=== PATIENT | female | born 2000 ===

== ENCOUNTER 2024-01-16 17:38 | Emergency (ER) | payer OTHER, SELFPAY ==
[2024-01-16 17:40] VITALS: BP 130/79
[2024-01-16 18:13] LABS: % Basophils 0.4 % (0-2); % Eosinophils 1.3 % (0-6); % Immature Granulocytes 0.1 % (0-0.5); % Lymphocytes 28.4 % (20.5-51.1); % Monocytes 8.5 % (1.7-9.3); % Neutrophils 61.3 % (42.2-75.2); Absolute Eosinophils 0.1 10^3/uL (0-0.7); Absolute Monocytes 0.6 10^3/uL (0.1-0.6); Absolute Neutrophils 4.4 10^3/uL (1.4-6.5); Hemoglobin 13.3 g/dL (12.0-16.0); Mean Corp Hgb Conc. 33.3 g/dL (33.0-37.0); Mean Corpuscular Hgb 30.6 pg (27.0-31.0); Mean Platelet Volume 10.9 fL (7.4-10.4); Nucleated Red Blood Cells % 0 %; Platelet Count 212 10^3/uL (130-400); Red Blood Cell Count 4.35 10^6/uL (4.20-5.40); Red Cell Dist. Width 11.9 % (11.5-14.5); White Blood Cell Count 7.2 10^3/uL (4.8-10.8)
[2024-01-16 18:29] LABS: ALT (SGPT) 19 U/L (0-35); AST (SGOT) 22 U/L (14-36); Alkaline Phosphatase 61 U/L (38-126); Blood Urea Nitrogen 17 mg/dl (7-17); Calcium 9.8 mg/dl (8.4-10.2); Carbon Dioxide 21 mmol/L (22-30); Chloride 104 mmol/L (98-107); Glucose 100 mg/dl (70-99); Sodium 141 mmol/L (135-145); Total Bilirubin 0.5 mg/dl (0.2-1.3); Total Protein 7.8 g/dl (6.3-8.2); eGFR > 60.00
[2024-01-16 19:05] VITALS: BP 132/80
--- NOTE | 2024-01-16 21:03 | ED.GENMED ---
History of Present Illness
General
Chief Complaint: Problems
Source: patient
Exam Limitations: none
Time Seen by Provider: 01/16/24 18:37
Nursing documentation reviewed up to this point in time: agreed with
History of Present Illness
History of Present Illness:
Patient to ED with report of vaginal spotting. Symptoms started today. She reports she is approx 8 weeks . . SHe has her first OB appointment on . She denies any abdominal/pelvic pain/cramping. To ED accompanied by family for
eval.
Past History
Past History
ED Past Medical History: None
ED Past Surgical History: None
Social History
Tobacco: Non-smoker
Alcohol: None
Phy Exam
General Physical Exam
General Presentation: well appearing and no apparent distress
General age: appears stated age
General Skin: warm and dry
General Habitus: normal
General Mental: alert
Pulmonary Exam
Pulmonary Exam: no respiratory distress
Gastrointestinal Exam
Gastrointestinal Exam: normal bowel sounds, non tender, soft, no organomegaly and non distended
Genitourinary Exam Female
Exam Female: other (Deferred for transvag US)
Musculoskeletal Exam
Musculoskeletal Exam: full ROM and neuro vasc intact
Skin Exam
Skin Exam: normal color, warm/dry and no rash
Psychiatric Exam
Psychiatric Exam: normal mood/affect
Course
Orders/Labs/Results
Orders:
Orders
01/16/24 17:53
Complete Blood Count/With Diff Urgent
Comprehensive Metabolic Panel Urgent
HCG, Beta Quantitative [Beta HCG Quantitative] Urgent
Is this a screen?: No
01/16/24 18:40
1st Trimester US [US 1st Trimester] Urgent
Comment:
Reason For Exam: bleeding
01/16/24 19:03
ABO [Blood Group&Type] Urgent
01/16/24 19:31
ABO2 Routine
BBK Wristband Number:
Associate notified that ABO2 has been ordered: [id number]
Date: 01/16/24
Time: 19:15
Legal Records Clerk ID: [id number]
Abnormal Lab Results
01/16/24
17:53
MPV 10.9 H fL
(7.4-10.4)
Carbon Dioxide 21 L mmol/L
(22-30)
Glucose 100 H mg/dl
(70-99)
01/16/24 17:53
01/16/24 17:53
Vital Signs
Initial and Last Documented VS:
Initial Vital Signs
Temp Pulse Resp BP Pulse Ox
98.8 F 89 18 130/79 100
01/16/24 17:40 01/16/24 17:40 01/16/24 17:40 01/16/24 17:40 01/16/24 17:40
Last Documented Vital Signs
Temp Pulse Resp BP Pulse Ox
98.8 F 89 18 130/79 100
01/16/24 17:40 01/16/24 17:40 01/16/24 17:40 01/16/24 17:40 01/16/24 17:40
Information
Weeks gestation: Weeks: (5.5)
Location: Location: (upper endometrium)
MDM/Problems Addressed
Differential Diagnosis Includes:
Patient to ED for vaginal spotting. Reports she is 8 weeks . HCG 97302. US report of 'saclike structure upper endometrium suspicious for gestational sac. Has mean diameter compatible with 5 weeks, 5 days. No internal contents to
confirm viable . No evidence of subchorionic hemorrhage'. Discussed these finding with patient. SHe reports after returning from US she passed a large amt of blood withsmall clots. She states she is no longer bleeding. NO abd. pain or
cramping. Declines pelvic exam. Discussed possibility of miscarriage with her. Recommend repeat HCG on Thursday and OB follow up. Given insructions on s/s to return to ED and sshe is agreeable to plan. DDX: bleeding in early ,
subchorionic hemorrhage, miscarriage
*Critical Care Note
Total Time (30-74mins, 75-104mins- exclusive of procedures): Not Applicable
ED Attending Note
-
Portions of this chart may have been created with voice recognition software.� Occasional wrong word or��sound alike� substitutions may have occurred due to the inherent limitations of voice recognition software.
Discharge Plan
Departure
Patient Disposition: Home (Routine Discharge)
Date of Disposition: 01/16/24
Time of Disposition: 21:01
Patient with high blood pressure during this ER visit?: No
Condition: Good
Covid-19: Not Applicable
Discharge Problem:
First trimester bleeding
Instructions: Threatened Miscarriage (DC), Bleeding in Early ED
Activity Restrictions/Additional Instructions:
Follow up with your telecom coordinator next week as scheduled. Return to the emergency department for abdominal/pelvic pain, heavy bleeding, weakness, or for any further concerns.
Interventions
Interventions:
*Risk Screen - Suicide Last Done: 01/16/24 20:04
*General Assessment Last Done: 01/16/24 20:04
*Neglect/Abuse Screening Last Done: 01/16/24 20:04
ED- Fall Risk Assessment Last Done: 01/16/24 20:05
*ED COVID-19 Vaccine History Last Done: 01/16/24 17:42
ED-Female Genitourinary Assessment Last Done: 01/16/24 20:04
Discharge Date and Time
Print Language: CZECH
[2024-01-16 21:38] VITALS: BP 121/73
[2024-01-16 21:41] VITALS: BP 121/73
== END 2024-01-16 21:56 | disposition home or self-care (01) ==
LOC: EMR 17:38
PROVIDERS: EMERGENCY PHYSICIAN Emergency Medicine; FAMILY PHYSICIAN Internal Medicine
DX: O20.9 Hemorrhage in early pregnancy, unspecified (principal); Z3A.08 8 weeks gestation of pregnancy
CPT/HCPCS: 99284; 76801; 80053; 84702; 85025; 86900; 86901

== ENCOUNTER 2024-01-18 12:25 | Emergency (ER) | payer OTHER, SELFPAY ==
[2024-01-18 12:28] VITALS: BP 120/84
--- NOTE | 2024-01-18 13:53 | ED.GENMED ---
History of Present Illness
<Gary Villa PA-C - Last Filed: 01/18/24 16:47>
General
Chief Complaint: Problems
Source: patient and records
Time Seen by Provider: 01/18/24 13:09
History of Present Illness
History of Present Illness:
G1, P0 23-year-old female presenting to the ER for reevaluation after being seen this past Thursday for threatened miscarriage for repeat hCG level. Patient states that she still has some mild spotting/bleeding and lower abdominal cramping but no
other concerns. Patient has scheduled follow-up with her OB this coming Thursday.
Past History
<Gary Villa PA-C - Last Filed: 01/18/24 16:47>
Past History
ED Past Medical History: None
ED Past Surgical History: None
Social History
Tobacco: Non-smoker
Alcohol: None
Drug: None
Living: with family
Review of Systems
<Gary Villa PA-C - Last Filed: 01/18/24 16:47>
Review of Systems
All Other Systems: ROS reviewed and negative except as documented in HPI and ROS
Phy Exam
<Gary Villa PA-C - Last Filed: 01/18/24 16:47>
Physical Exam
Physical Exam:
GENERAL: Alert , in no apparent distress
EYE: conjunctiva clear
Head: Normocephalic atraumatic
NECK: Supple,
ENT: mmm.
LUNGS: no acute respiratory distress
NEUROLOGICAL: Alert and oriented
SKIN: Warm and dry, skin intact.
MUSCULOSKELETAL: well perfused.
PSYCH: Normal and appropriate interaction.
Scores
<ELLIE Zaman Last Filed: 01/18/24 16:47>
Heart Failure Risk
Heart Failure Risk Score: Not Applicable
Heart Score for Chest Pain Patients
STEMI patient?: Not applicable
Withdrawal Assessment of Alcohol
Withdrawal Assessment Completed?: Not applicable
Course
<Gary Villa PA-C - Last Filed: 01/18/24 16:47>
Orders/Labs/Results
Orders:
Orders
01/18/24 13:40
Beta HCG Quantitative Urgent
Is this a screen?: No
Vital Signs
Initial and Last Documented VS:
Initial Vital Signs
Temp Pulse Resp BP Pulse Ox
98.2 F 80 19 120/84 100
01/18/24 12:28 01/18/24 12:28 01/18/24 12:28 01/18/24 12:28 01/18/24 12:28
Last Documented Vital Signs
Temp Pulse Resp BP Pulse Ox
98.2 F 82 16 120/81 100
01/18/24 12:28 01/18/24 16:36 01/18/24 16:36 01/18/24 16:36 01/18/24 12:28
<Ethan Bruno Jr., PA-C - Last Filed: 01/18/24 16:37>
Orders/Labs/Results
Orders:
Orders
01/18/24 13:40
Beta HCG Quantitative Urgent
Is this a screen?: No
Vital Signs
Initial and Last Documented VS:
Initial Vital Signs
Temp Pulse Resp BP Pulse Ox
98.2 F 80 19 120/84 100
01/18/24 12:28 01/18/24 12:28 01/18/24 12:28 01/18/24 12:28 01/18/24 12:28
Last Documented Vital Signs
Temp Pulse Resp BP Pulse Ox
98.2 F 82 16 120/81 100
01/18/24 12:28 01/18/24 16:36 01/18/24 16:36 01/18/24 16:36 01/18/24 12:28
Information
Weeks gestation: Weeks:
Location: Location:
<Gary Villa PA-C - Last Filed: 01/18/24 16:47>
MDM/Problems Addressed
Differential Diagnosis Includes:
Threatened , incomplete , completed
MDM/Problems Addressed:
Six 23-year-old female presenting to the emergency department for reevaluation with repeat hCG level. Patient had ultrasound done Thursday which showed a suspected intrauterine gestational sac. Measured at approximately 5 weeks and 5 days. Had an
hCG level slightly greater than 13,000. Will repeat hCG. Patient has already arranged follow-up this coming Thursday. Anticipate discharge home
<Ethan Bruno Jr., PA-C - Last Filed: 01/18/24 16:37>
MDM/Problems Addressed
MDM/Problems Addressed:
Six 23-year-old female presenting to the emergency department for reevaluation with repeat hCG level. Patient had ultrasound done Thursday which showed a suspected intrauterine gestational sac. Measured at approximately 5 weeks and 5 days. Had an
hCG level slightly greater than 13,000. Will repeat hCG. Patient has already arranged follow-up this coming Thursday. Anticipate discharge home
Rashid Bruno PA-C.
Repeat hCG without significant change. Case discussed with OB send this is likely a miscarriage and she should follow-up closely with her forging engineer. This was conveyed to the patient who will follow-up. Return precautions given.
<Gary Villa PA-C - Last Filed: 01/18/24 16:47>
*Pulse Oximetry
Patient hypoxic: no
<Ethan Bruno Jr., PA-C - Last Filed: 01/18/24 16:37>
*Critical Care Note
Total Time (30-74mins, 75-104mins- exclusive of procedures): Not Applicable
<Gary Villa PA-C - Last Filed: 01/18/24 16:47>
Patient Management
Discussion with other providers: Sack Sewer
ED Attending Note
<Gary Villa PA-C - Last Filed: 01/18/24 16:47>
-
Portions of this chart may have been created with voice recognition software.� Occasional wrong word or��sound alike� substitutions may have occurred due to the inherent limitations of voice recognition software.
Discharge Plan
Departure
Patient Disposition: Home (Routine Discharge)
Date of Disposition: 01/18/24
Time of Disposition: 15:41
Patient with high blood pressure during this ER visit?: No
Condition: Good
Covid-19: Not Applicable
Discharge Problem:
Miscarriage
Instructions: Miscarriage (DC)
Referrals:
Lola Cleaning, [Family Provider] -
Activity Restrictions/Additional Instructions:
You came to the emergency department today with concerns of ongoing bleeding and cramping. Your hCG has not increased. Please follow-up closely with your forging engineer in 2 days for reassessment and further management. Return to the emergency
department for any worsening, new or concerning symptoms.
Interventions
Interventions:
*Risk Screen - Suicide Last Done: 01/18/24 12:29
*General Assessment Last Done: 01/18/24 13:36
*Neglect/Abuse Screening Last Done: 01/18/24 12:29
ED- Fall Risk Assessment Last Done: 01/18/24 13:36
*ED COVID-19 Vaccine History Last Done: 01/18/24 13:36
*Nursing Disposition Last Done: 01/18/24 16:36
ED-Female Genitourinary Assessment Last Done: 01/18/24 13:36
Discharge Date and Time
Discharge Date/Time: 01/18/24 16:36
Print Language: KAZAKH
[2024-01-18 16:36] VITALS: BP 120/81
== END 2024-01-18 16:36 | disposition home or self-care (01) ==
LOC: EMR 12:25
PROVIDERS: Physician Assistant Medical; EMERGENCY PHYSICIAN Student in an Organized Health Care Education/Training Program; FAMILY PHYSICIAN Family Medicine
DX: O03.9 Complete or unspecified spontaneous abortion without complication (principal)
CPT/HCPCS: 99283; 84702